=== PATIENT | male | born 1930 | race Caucasian/White ===

== ENCOUNTER 2016-08-10 18:34 | Inpatient (IN) | payer MEDICARE, OTHER ==
[~2016-08-10] VITALS: Ht 342.9 cm; Wt 81.6 kg
[~2016-08-10 18:34] MED LIST: ACET-868 PO; ASPI81TA2 PO; DIVA125T2 PO; DOCU-25 PO; LEVO50TA PO; LORA1TAB82 PO; MAGN400O6 PO; MYLANTA PO; OLAN2.5T3 PO; PRAV20TA PO; SODI45SP6; TAMS-12 PO; TEMA15CA5 PO
[2016-08-10] MEDS ORDERED: IV NS 0.9% 1,000 ML BAG IV ONE (19:00)
[2016-08-10] MEDS ORDERED: IV NS 0.9% 1,000 ML ONE (19:02)
[2016-08-10] MEDS ORDERED: IV SET PRIMARY 1 EA INFUS.SET MC ONE (19:02)
[2016-08-10 19:10] LABS: RED BLOOD CELL COUNT(AUTO) 5.17 MIL/uL (4.5-6.0)
[2016-08-10 19:13] LABS: BASOPHILS # (AUTO) 0.1 /CMM (0.0-0.2); BASOPHILS % (AUTO) 1.3 % (0.0-2.0); DIFF TOTAL % 100 %; EOSINOPHILS # (AUTO) 0.4 /CMM (0.0-0.7); HEMATOCRIT 47 % (39-51); HEMOGLOBIN 15.8 g/dL (13.5-17.5); LYMPHOCYTES # (AUTO) 3.3 /CMM (0.8-4.8); LYMPHOCYTES % (AUTO) 34.8 % (20.0-44.0); MEAN CORPUSCULAR HEMOGLOBIN 31 PG (26.0-33.0); MEAN CORPUSCULAR HGB CONC 34 g/dl (31.0-36.0); MEAN CORPUSCULAR VOLUME 90 fL (80-96); MONOCYTES # (AUTO) 0.6 /CMM (0.1-1.30); MONOCYTES % (AUTO) 5.9 % (2.0-12.0); PLATELET COUNT (AUTO) 263 /CMM (150-450); WHITE BLOOD COUNT (AUTO) 9.4 K/uL (4.3-11.0)
[2016-08-10 19:23] LABS: ANION GAP 14 (5-14); CARBON DIOXIDE 29 mmol/L (21-32); CHLORIDE 99 mmol/L (98-107); CREATININE 1.3 mg/dL (0.6-1.3); GLUCOSE 148 mg/dL (74-106); POTASSIUM 4.2 mmol/L (3.5-5.1); SODIUM SERUM 137 mmol/L (136-145); UREA NITROGEN, BLOOD 20 mg/dL (7-18)
[2016-08-10 19:26] LABS: INR 1.01 (0.87-1.13); PROTHROMBIN TIME 10.6 SECS (9.5-12.7)
[2016-08-10 19:28] LABS: ALANINE AMINOTRANSFERASE 15 U/L (12-78); ALBUMIN 3.6 g/dL (3.4-5.0); ASPARTATE AMINOTRANSFERASE 24 U/L (15-37); BILIRUBIN,DIRECT 0.1 mg/dL (0.0-0.2); BILIRUBIN,TOTAL 0.5 mg/dL (0.2-1.0); INDIRECT BILIRUBIN 0.4 mg/dL (0.0-1.1); TOTAL PROTEIN, SERUM 8.2 g/dL (6.4-8.2)
[2016-08-10 19:30] LABS: TROPONIN I < 0.017 ng/mL (0.00-0.056)
[2016-08-10 22:00] VITALS: BP 149/79
[2016-08-10] MEDS ORDERED: ACETAMINOPHEN 325 MG TABLET PO PRN (23:00)
[2016-08-10] MEDS ORDERED: TAMSULOSIN 0.4 MG CAP.SR.24H PO SCH (23:00)
[2016-08-10] MEDS ORDERED: TEMAZEPAM 7.5 MG CAPSULE PO PRN (23:00)
[2016-08-10] MEDS ORDERED: PRAVASTATIN SODIUM 20 MG TABLET PO SCH (23:00)
[2016-08-10] MEDS ORDERED: HYDROCODONE/APAP 5/325MG 1 EACH TABLET PO PRN (23:00)
[2016-08-10] MEDS ORDERED: IV NS 0.9% 1,000 ML IV PRN (23:00)
[2016-08-10] MEDS ORDERED: TAMSULOSIN 0.4 MG CAP.SR.24H ONE (23:30)
[2016-08-11] VITALS: BP_SYST 149; BP_SYST 152; BP_DIAS 79; BP_DIAS 87
[2016-08-11 04:00] VITALS: BP_SYST 144; BP_SYST 149; BP_DIAS 60; BP_DIAS 68
[2016-08-11 07:01] VITALS: BP 149/60
[2016-08-11] MEDS ORDERED: TEMAZEPAM 15 MG CAPSULE PO PRN (07:30)
[2016-08-11] MEDS ORDERED: ACETAMINOPHEN 325 MG TABLET PO PRN (07:30)
[2016-08-11 07:54] LABS: BASOPHILS % (AUTO) 0.5 % (0.0-2.0); DIFF TOTAL % 100 %; EOSINOPHILS # (AUTO) 0.4 /CMM (0.0-0.7); EOSINOPHILS % (AUTO) 5.2 % (0.0-6.0); HEMATOCRIT 41 % (39-51); HEMOGLOBIN 13.6 g/dL (13.5-17.5); LYMPHOCYTES # (AUTO) 2.8 /CMM (0.8-4.8); LYMPHOCYTES % (AUTO) 40.4 % (20.0-44.0); MEAN CORPUSCULAR HEMOGLOBIN 31 PG (26.0-33.0); MEAN CORPUSCULAR HGB CONC 33 g/dl (31.0-36.0); MEAN CORPUSCULAR VOLUME 92 fL (80-96); MONOCYTES # (AUTO) 0.5 /CMM (0.1-1.30); MONOCYTES % (AUTO) 7.8 % (2.0-12.0); NEUTROPHILS # (AUTO) 3.2 /CMM (1.8-8.9); NEUTROPHILS % (AUTO) 46.1 % (43.0-81.0); PLATELET COUNT (AUTO) 227 /CMM (150-450); RED BLOOD CELL COUNT(AUTO) 4.43 MIL/uL (4.5-6.0); WHITE BLOOD COUNT (AUTO) 6.9 K/uL (4.3-11.0)
[2016-08-11 08:09] LABS: BILIRUBIN,DIRECT 0.1 mg/dL (0.0-0.2); BILIRUBIN,TOTAL 0.4 mg/dL (0.2-1.0); CALCIUM, SERUM 8.5 mg/dL (8.5-10.1); CREATININE 0.9 mg/dL (0.6-1.3); INDIRECT BILIRUBIN 0.3 mg/dL (0.0-1.1); POTASSIUM 4.3 mmol/L (3.5-5.1)
[2016-08-11 08:20] LABS: THYROID STIMULATING HORMONE 7.347 uIU/mL (0.358-3.74)
[2016-08-11] MEDS: ASPIRIN 81 MG TAB.CHEW PO SCH (08:28)
[2016-08-11] MEDS: DOCUSATE SODIUM 100 MG CAPSULE PO SCH ×2 (08:28→16:46)
[2016-08-11] MEDS: SALINE NASAL SPRAY 0.65% 1 BOTTLE BOTTLE NS SCH ×3 (08:28→16:46)
[2016-08-11] MEDS: DIVALPROEX SODIUM 125 MG TABLET.DR PO SCH ×3 (08:28→16:46)
[2016-08-11] MEDS: CHOLECALCIFEROL 1,000 UNIT TABLET (VIT D3) PO SCH (11:23)
[2016-08-11] MEDS: LEVOTHYROXINE SODIUM 100 MCG TABLET PO SCH (11:23)
[2016-08-11] MEDS ORDERED: MAGNESIUM HYDROXIDE 30 ML UDC PO PRN (11:30)
[2016-08-11 12:00] VITALS: BP 150/75
[2016-08-11] MEDS: CARBIDOPA/LEVODOPA 25/100 MG 1 UDTAB PO SCH ×2 (12:31→16:46)
[2016-08-11 16:00] VITALS: BP_SYST 151; BP_SYST 157; BP_DIAS 87
[2016-08-11 21:15] VITALS: BP 135/99
[2016-08-11] MEDS: TAMSULOSIN 0.4 MG CAP.SR.24H PO SCH (21:53)
[2016-08-11] MEDS: ATORVASTATIN 10 MG TABLET PO SCH (21:53)
[2016-08-11] MEDS ORDERED: PRAVASTATIN SODIUM 20 MG TABLET PO SCH (22:00)
[2016-08-12] VITALS (7 sets, daily range): BP systolic 130–154; BP diastolic 43–91
[2016-08-12] MEDS: CHOLECALCIFEROL 1,000 UNIT TABLET (VIT D3) PO SCH (08:18)
[2016-08-12] MEDS: ASPIRIN 81 MG TAB.CHEW PO SCH (08:18)
[2016-08-12] MEDS: CARBIDOPA/LEVODOPA 25/100 MG 1 UDTAB PO SCH ×3 (08:18→17:18)
[2016-08-12] MEDS: SALINE NASAL SPRAY 0.65% 1 BOTTLE BOTTLE NS SCH ×3 (08:18→17:18)
[2016-08-12] MEDS: DIVALPROEX SODIUM 125 MG TABLET.DR PO SCH ×3 (08:18→17:18)
[2016-08-12] MEDS: DOCUSATE SODIUM 100 MG CAPSULE PO SCH ×2 (08:18→17:18)
[2016-08-12] MEDS: LEVOTHYROXINE SODIUM 100 MCG TABLET PO SCH (08:18)
[2016-08-12] MEDS ORDERED: ENOXAPARIN SODIUM 30 MG/0.3 ML DISP.SYRIN SQ SCH (13:00)
[2016-08-12] MEDS ORDERED: ENOXAPARIN SODIUM 40 MG/0.4 ML DISP.SYRIN SQ SCH (21:00)
[2016-08-12] MEDS: ATORVASTATIN 10 MG TABLET PO SCH (21:13)
[2016-08-12] MEDS: TAMSULOSIN 0.4 MG CAP.SR.24H PO SCH (21:13)
[2016-08-13] VITALS (7 sets, daily range): BP systolic 136–156; BP diastolic 77–90
[2016-08-13] MEDS: LEVOTHYROXINE SODIUM 100 MCG TABLET PO SCH (08:14)
[2016-08-13] MEDS: CHOLECALCIFEROL 1,000 UNIT TABLET (VIT D3) PO SCH (08:14)
[2016-08-13] MEDS: DIVALPROEX SODIUM 125 MG TABLET.DR PO SCH (08:14)
[2016-08-13] MEDS: DOCUSATE SODIUM 100 MG CAPSULE PO SCH (08:14)
[2016-08-13] MEDS: ASPIRIN 81 MG TAB.CHEW PO SCH (08:14)
[2016-08-13] MEDS: CARBIDOPA/LEVODOPA 25/100 MG 1 UDTAB PO SCH (08:14)
[2016-08-13] MEDS: SALINE NASAL SPRAY 0.65% 1 BOTTLE BOTTLE NS SCH (08:22)
== END 2016-08-13 13:30 | DRG 308 ==
LOC: ER 18:36 → TELE 20:56
PROVIDERS: ADMIT Internal Medicine; ATTEND Internal Medicine
DX: I45.2 Bifascicular block (principal); G93.40 Encephalopathy, unspecified; G91.9 Hydrocephalus, unspecified; J98.11 Atelectasis; I31.3 Pericardial effusion (noninflammatory); I10 Essential (primary) hypertension; E78.5 Hyperlipidemia, unspecified; I25.10 Atherosclerotic heart disease of native coronary artery without angina pectoris; E55.9 Vitamin D deficiency, unspecified; E03.9 Hypothyroidism, unspecified; G20 Parkinson's disease; G30.9 Alzheimer's disease, unspecified; N31.9 Neuromuscular dysfunction of bladder, unspecified; N40.0 Benign prostatic hyperplasia without lower urinary tract symptoms; Z83.3 Family history of diabetes mellitus; Z87.891 Personal history of nicotine dependence; Z98.2 Presence of cerebrospinal fluid drainage device; Z91.81 History of falling; F02.80 Dementia in other diseases classified elsewhere, unspecified severity, without behavioral disturbance, psychotic disturbance, mood disturbance, and anxiety; F31.9 Bipolar disorder, unspecified; S09.90XA Unspecified injury of head, initial encounter; W19.XXXA Unspecified fall, initial encounter; Y93.9 Activity, unspecified; Y92.239 Unspecified place in hospital as the place of occurrence of the external cause; Y99.9 Unspecified external cause status; F29 Unspecified psychosis not due to a substance or known physiological condition
CPT/HCPCS: 36415; 70450-TC; 71010-TC; 80048-TC; 80076-TC; 84439-TC; 84443-TC; 84484-TC; 85025-TC; 85730-TC; 87081-TC; 92611-TC; 93307-TC; 97001-TC; 97003-TC; 97110-TC; 97530-TC; A4606; J1650; J7030; Z7610

== ENCOUNTER 2017-05-19 17:45 | Emergency (ER) | payer MEDICARE, OTHER ==
[~2017-05-19] VITALS: Ht 165.1 cm; Wt 68.0 kg
[2017-05-19 17:50] VITALS: BP 99/49
--- NOTE | 2017-05-19 17:50 | NUR ---
BBRA FROM [facility] FOR RESPIRATORY DISTRESS AND ALOC. PT NON VERBAL, ON NON REBREATHER. PT PLACED IN GOWN AND MONITOR. RT AT BEDSIDE. MD AT BEDSIDE. PREPARED FOR INTUBATION PER MD
[2017-05-19] MEDS ORDERED: ETOMIDATE 2 MG/ML VIAL IV ONE (17:55)
[2017-05-19] MEDS ORDERED: ROCURONIUM BROMIDE 50 MG/5 ML IV ONE (17:55)
--- NOTE | 2017-05-19 17:55 | NUR ---
PT INTUBED AT 23 CM AT 7.5 AT THE LIP
--- NOTE | 2017-05-19 18:11 | NUR ---
PT TO CT SCAN
--- NOTE | 2017-05-19 18:24 | NUR ---
PT BACK FROM CT SCAN
[2017-05-19 18:32] LABS: BASOPHILS # (AUTO) 0.2 /CMM (0.0-0.2); BASOPHILS % (AUTO) 1.1 % (0.0-2.0); EOSINOPHILS # (AUTO) 0.1 /CMM (0.0-0.7); EOSINOPHILS % (AUTO) 0.4 % (0.0-6.0); HEMATOCRIT 47 % (39-51); HEMOGLOBIN 15.6 g/dL (13.5-17.5); LYMPHOCYTES # (AUTO) 5.2 /CMM (0.8-4.8); LYMPHOCYTES % (AUTO) 32.8 % (20.0-44.0); MEAN CORPUSCULAR HEMOGLOBIN 31 PG (26.0-33.0); MEAN CORPUSCULAR HGB CONC 34 g/dl (31.0-36.0); MEAN CORPUSCULAR VOLUME 92 fL (80-96); MONOCYTES # (AUTO) 0.3 /CMM (0.1-1.30); MONOCYTES % (AUTO) 2.1 % (2.0-12.0); NEUTROPHILS # (AUTO) 10.1 /CMM (1.8-8.9); NEUTROPHILS % (AUTO) 63.6 % (43.0-81.0); PLATELET COUNT (AUTO) 275 /CMM (150-450); RDW COEFFICIENT OF VARIATION 12.6 (11.5-15.0); RED BLOOD CELL COUNT(AUTO) 5.08 MIL/uL (4.5-6.0); WHITE BLOOD COUNT (AUTO) 15.9 K/uL (4.3-11.0)
[2017-05-19 18:40] LABS: CALCIUM, SERUM 8.9 mg/dL (8.5-10.1); CARBON DIOXIDE 19 mmol/L (21-32); CHLORIDE 98 mmol/L (98-107); CREATININE 1.7 mg/dL (0.6-1.3); GLUCOSE 283 mg/dL (74-106); SODIUM SERUM 137 mmol/L (136-145); UREA NITROGEN, BLOOD 24 mg/dL (7-18)
[2017-05-19 18:44] LABS: INR 0.99 (0.87-1.13); PROTHROMBIN TIME 10.3 SECS (9.5-12.7)
[2017-05-19 18:48] LABS: TROPONIN I 0.231 ng/mL (0.00-0.056)
[2017-05-19 18:52] LABS: ALANINE AMINOTRANSFERASE 45 U/L (12-78); ALBUMIN 3.6 g/dL (3.4-5.0); ALKALINE PHOSPHATASE 63 U/L (46-116); ASPARTATE AMINOTRANSFERASE 36 U/L (15-37); BILIRUBIN,DIRECT 0.1 mg/dL (0.0-0.2); BILIRUBIN,TOTAL 0.4 mg/dL (0.2-1.0); TOTAL PROTEIN, SERUM 7.7 g/dL (6.4-8.2)
[2017-05-19] MEDS ORDERED: PROPOFOL 100 ML IV ONE (19:02)
--- NOTE | 2017-05-19 19:22 | NUR ---
DR GODNIEZ NOTIFIED WITH THE HEART RATE OF 140 AND THE LACTIC ACID OF 12.1.
[2017-05-19] MEDS ORDERED: VANCOMYCIN 1 GM VIAL ONE (19:26)
[2017-05-19] MEDS ORDERED: MEROPENEM 500 MG VIAL IV ONE (19:26)
[2017-05-19] MEDS ORDERED: VANCOMYCIN 1 GM in IV D5W 250 ML IV ONE (19:30)
[2017-05-19] MEDS ORDERED: MEROPENEM 500 MG in IV NS 0.9% 50 ML IV ONE (19:30)
[2017-05-19] MEDS ORDERED: IV NS 0.9% 1,000 ML BAG IV ONE (19:30)
[2017-05-19 19:47] LABS: APPEARANCE,URINE Clear (CLEAR); BILIRUBIN,URINE Negative (NEGATIVE); BLOOD, URINE Trace-lysed Ery/uL (NEGATIVE); COLOR,URINE Yellow (YELLOW); KETONES,URINE 15 (NEGATIVE); LEUKOCYTE ESTERASE ,URINE Negative (NEGATIVE); NITRITE, URINE Negative (NEGATIVE); PROTEIN,URINE 100 mg/dl (NEGATIVE); UGLUCOSE 100 MG/DL mg/dL (NEGATIVE)
--- NOTE | 2017-05-19 19:56 | NUR ---
CALL FROM [facility]. PT ACCEPTED BY DR FORD. BED 4522-1. # FOR REPORT [phone] OPTION 1, EXT [phone], OR EXT [phone]. [facility] CCT ETA 204
[2017-05-19 19:57] LABS: BACTERIA,URINE Moderate /HPF (None Seen); HYALINE CASTS, URINE Few /LPF (None Seen); SQUAMOUS EPITHELIAL CELL,UR Moderate /HPF (None Seen)
[2017-05-19 19:58] LABS: FINE GRANULAR CASTS,URINE Rare /LPF (None Seen)
[2017-05-19 20:01] LABS: ABG BASE EXCESS -8.2 mmol/L; ABG OXYGEN SATURATION 98.1 % (92.0-98.5); ABG PCO2 37.1 mmHg (35.0-45.0); ABG PH 7.293 (7.350-7.450); ABG PO2 136.4 mmHg (75.0-100.0); AaDO2 539.5 mmHg; COHb 0.4 % (0.5-1.5); MetHb 0.6 % (0.0-1.5); O2Hb 97.1 % (94.0-97.0); PEEP,BG 0 cm H2O; SITE, ABG Left Radial; VENT MODE, BG AC 20 500 100% +0; VT, ABG 500 mL
[2017-05-19 20:03] VITALS: BP 120/55
--- NOTE | 2017-05-19 20:26 | NUR ---
Report given to [facility] Moni carson for shamika.
[2017-05-19] MEDS ORDERED: PROPOFOL 100 ML IV PRN (21:00)
[2017-05-19 21:16] VITALS: BP 121/59
[2017-05-19 21:47] VITALS: BP 137/64
--- NOTE | 2017-05-19 21:48 | NUR ---
Patient picked up by ambulance staff. vss. nad noted.
== END 2017-05-19 21:49 | disposition short-term general hospital (02) ==
LOC: ER 17:47
DX: J96.00 Acute respiratory failure, unspecified whether with hypoxia or hypercapnia (principal); I62.9 Nontraumatic intracranial hemorrhage, unspecified; A41.9 Sepsis, unspecified organism; R65.21 Severe sepsis with septic shock; R74.8 Abnormal levels of other serum enzymes; N17.9 Acute kidney failure, unspecified; I10 Essential (primary) hypertension; E78.5 Hyperlipidemia, unspecified; Z88.0 Allergy status to penicillin; Z88.1 Allergy status to other antibiotic agents; Z88.8 Allergy status to other drugs, medicaments and biological substances; Z79.82 Long term (current) use of aspirin
CPT/HCPCS: 36415; 36600; 70450-TC; 71010-TC; 80048-TC; 80076-TC; 81000-TC; 83605-TC; 84484-TC; 85025-TC; 85730-TC; 87040-TC; 87081-TC; 87086-TC; A4216; J2185; J3370; J3490; J7030; J7060